=== PATIENT | female | born 2000 ===

== ENCOUNTER 2024-11-29 12:18 | Emergency (ER) | payer MEDICAID ==
[~2024-11-29] VITALS: Ht 172.7 cm; Wt 82.0 kg
[2024-11-29 12:21] VITALS: O2SAT 100
[2024-11-29] MEDS: SODIUM CHLORIDE 0.9% 1,000 ML IV ONE (12:38)
[2024-11-29 12:42] LABS: BASOPHILS % 0.8 % (0.0-2.0); EOSINOPHILS % 0.8 % (0.0-5.0); HEMATOCRIT. 33.8 % (36.0-48.0); HEMOGLOBIN. 10.9 g/dL (12.0-16.0); LYMPHOCYTES % 21.0 % (20.0-50.0); MEAN PLATELET VOLUME 6.9 fl (7.4-10.4); MONOCYTES % 8.1 % (2.0-8.0); NEUTROPHILS % 69.3 % (40.0-76.0); PLATELET 367 x1000/uL (130-400); RED BLOOD CELL COUNT 4.64 mill/uL (4.2-5.4); RED CELL DISTRIBUTION WIDTH 17.6 % (11.6-14.6)
[2024-11-29 13:33] LABS: CREATININE 0.9 mg/dL (0.6-1.0); UREA NITROGEN BLOOD 10 mg/dL (9-23)
[2024-11-29] MEDS ORDERED: FERR324T4 MT (14:17)
[2024-11-29 14:49] VITALS: BP 120/75; PULSE 94; RESP 14; TEMP 36.9; O2SAT 100
[2024-11-29 16:13] LABS: HCG SCREEN NEGATIVE
== END 2024-11-29 14:49 | disposition home or self-care (01) ==
LOC: ER 12:18
DX: N92.0 Excessive and frequent menstruation with regular cycle (principal); D64.9 Anemia, unspecified; F17.210 Nicotine dependence, cigarettes, uncomplicated
CPT/HCPCS: 99283; 96360; 80048; 84703; 85025; 86850; 86900; 86901; 36415; J7030